=== PATIENT | male | born 1980 | race Caucasian/White ===

== ENCOUNTER 2020-05-26 12:14 | Emergency (ER) | payer OTHER ==
[~2020-05-26] VITALS: Ht 180.3 cm; Wt 135.0 kg
--- NOTE | 2020-05-26 13:55 | RAD ---
EXAM: Head and cervical spine CT without contrast. HISTORY: Pain. Fall. TECHNIQUE: Computed tomographic images of the head and cervical spine were obtained without contrast. *One or more of the following individualized dose reduction techniques were utilized for this examina tion: 1. Automated exposure control. 2. Adjustment of the mA and/or kV according to patient size. 3. Use of iterative reconstruction technique. COMPARISON: None. FINDINGS: Head: There is no hemorrhage. There is no mass effect or midline shift. There is no hydrocephalus. Th e chavez-white matter differentiation pattern is intact. There are bilateral maxillary sinus mucous ret ention cysts. The orbits and mastoid air cells are unremarkable. There is no calvarial lesion. Cervical spine: There is no listhesis. The vertebral bodies are normal in height. There is mild endpl ate remodeling at C5-C6. There is no fracture or suspicious osseous lesion. The combination of endpla te remodeling and uncovertebral arthropathy results in mild left foraminal stenosis at C6-C7. The valencia g apices are unremarkable. IMPRESSION: No acute intracranial finding or evidence of acute cervical spine trauma. Electronically signed by: Rox Thomas MD (05/26/2020 1:53 PM) [id number]
[2020-05-26 14:00] VITALS: BP 141/90
--- NOTE | 2020-05-26 14:14 | ED.ADGEN ---
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 Patient states that at about 1145 this morning he slipped and fell on ice. He is unsure whether or not he lost consciousness. Patient states that he landed on his back, he denies any abdominal pain, vomiting, vision changes, numbness, tingling, or weakness. He currently rates his pain 8 out of 10 on pain scale, he denies any alleviating factors. Review of Systems: Review of Systems: Complete ROS is negative unless otherwise noted in HPI. Allergies: Allergies: Allergies Coded Allergies Type Severity Reaction Last Updated Verified shrimp Allergy Intermediate 05/26/20 Yes Uncoded Allergies Type Severity Reaction Last Updated Verified SHRIMP EXTRACT Allergy Unknown 05/26/20 Physical Exam: PE: See Above Constitutional: Well developed, well nourished, no acute distress, non-toxic appearance, obese. [] HENT: Normocephalic, atraumatic, bilateral external ears normal, nose normal. 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 [] Neck: L paracervical TTP, diffuse bony ttp without step off or crepitus, no stridor. [] Cardiovascular:Heart rate regular rhythm Lungs & Thorax: Respirations even and unlabored, no retractions, no respiratory distress Skin: Warm, dry, no erythema, no rash. [] Extremities: No cyanosis, ROM intact, no edema. [] Neurologic: Alert and oriented X 3, no focal deficits noted. [] Psychologic: Affect normal, judgement normal, mood normal. [] Current Patient Data: Vital Signs: Vital Signs Date Time Temp Pulse Resp B/P (MAP) Pulse Ox O2 Delivery O2 Flow Rate FiO2 05/26/20 14:00 94 18 141/90 (107) 97 Room Air 05/26/20 12:24 96.4 96.4 EKG: EKG: [] Heart Score: Risk Factors: Risk Factors: DM, Current or recent (<one month) smoker, HTN, HLP, family history of CAD, obesity. Risk Scores: Score 0 - 3: 2.5% MACE over next 6 weeks - Discharge Home Score 4 - 6: 20.3% MACE over next 6 weeks - Admit for Clinical Observation Score 7 - 10: 72.7% MACE over next 6 weeks - Early Invasive Strategies Radiology/Procedures: Radiology/Procedures: PROCEDURE: CT HEAD AND CERVICAL SPINE WO EXAM: Head and cervical spine CT without contrast. HISTORY: Pain. Fall. TECHNIQUE: Computed tomographic images of the head and cervical spine were obtained without contrast. *One or more of the following individualized dose reduction techniques were utilized for this examination: 1. Automated exposure control. 2. Adjustment of the mA and/or kV according to patient size. 3. Use of iterative reconstruction technique. COMPARISON: None. FINDINGS: Head: There is no hemorrhage. There is no mass effect or midline shift. There is no hydrocephalus. The chavez-white matter differentiation pattern is intact. There are bilateral maxillary sinus mucous retention cysts. The orbits and mastoid air cells are unremarkable. There is no calvarial lesion. Cervical spine: There is no listhesis. The vertebral bodies are normal in he ight. There is mild endplate remodeling at C5-C6. There is no fracture or suspicious osseous lesion. The combination of endplate remodeling and uncovertebral arthropathy results in mild left foraminal stenosis at C6-C7. The lung apices are unremarkable. IMPRESSION: No acute intracranial finding or evidence of acute cervical spine trauma. [] Course & Med Decision Making: Course & Med Decision Making Pertinent Labs and Imaging studies reviewed. (See chart for details) [] Dragon Disclaimer: Dragon Disclaimer: This electronic medical record was generated, in whole or in part, using a voice recognition dictation system. Departure Departure Impression: Primary Impression: Fall from slipping on ice Additional Impressions: Cervical strain, acute Closed head injury with brief loss of consciousness Disposition: 01 DC HOME SELF CARE/HOMELESS Condition: STABLE Referrals: UNKNOWN PCP NAME (PCP) Patient Instructions: Cervical Strain and Sprain with Rehab-SportsMed, Head Injury, Adult, [id number] Additional Instructions: Fill the prescription(s) and use as directed. Apply ice to sore areas as needed for comfort for the first 48 hours then apply ice or heat as needed. Activity as tolerated. Follow the head injury precautions provided. Follow up with your primary care doctor in 1-2 days. Return to the ER if symptoms worsen. Scripts Naproxen (NAPROXEN) 500 Mg Tablet 1 TAB PO BID PRN for PAIN for 10 Days, #20 TAB 0 Refills Prov: IAN BHARDWAJ [employer] 05/26/20 Cyclobenzaprine Hcl (CYCLOBENZAPRINE HCL) 10 Mg Tablet 1 TAB PO TID PRN for MUSCLE PAIN for 10 Days, #30 TAB 0 Refills Prov: IAN BHARDWAJ APRN 05/26/20 Problem Qualifiers Primary Impression: Fall from slipping on ice Encounter type: initial encounter Qualified Codes: W00.9XXA - Unspecified fall due to ice and snow, initial encounter Additional Impressions: Cervical strain, acute Encounter type: initial encounter Qualified Codes: S16.1XXA - Strain of muscle, fascia and tendon at neck level, initial encounter IAN BHARDWAJ [employer] May 26, 2020 14:14
[2020-05-26] MEDS ORDERED: CYCL10TA2 PO (14:26)
[2020-05-26] MEDS ORDERED: NAPR-514 PO (14:26)
== END 2020-05-26 14:43 | disposition home or self-care (01) ==
LOC: ER 12:14
DX: S06.9X9A Unspecified intracranial injury with loss of consciousness of unspecified duration, initial encounter (principal); S16.1XXA Strain of muscle, fascia and tendon at neck level, initial encounter; R11.0 Nausea; E11.9 Type 2 diabetes mellitus without complications; Z91.013 Allergy to seafood; W00.2XXA Other fall from one level to another due to ice and snow, initial encounter; Y93.89 Activity, other specified; Y92.89 Other specified places as the place of occurrence of the external cause; Y99.8 Other external cause status
CPT/HCPCS: 70450; 72125; 99285-25